=== PATIENT | female | born 1990 | race Caucasian/White ===

== ENCOUNTER 2018-02-08 05:30 | Day surgery (SDC) | payer OTHER ==
[~2018-02-08 05:30] MED LIST: OBSTETRIX EC C1 EACH PO; PROGESTERONE200 MG PO; SYNTHROID200 MCG PO
== END 2018-02-08 13:20 | disposition home or self-care (01) ==
LOC: CIR.AMB 05:30
DX: O34.31 Maternal care for cervical incompetence, first trimester (principal)

== ENCOUNTER 2018-05-12 09:00 | Outpatient (CLI) | payer OTHER | END 2018-05-12 10:18 | disposition home or self-care (01) | LOC: NST 09:00 | DX: O60.02 Preterm labor without delivery, second trimester (principal); O34.32 Maternal care for cervical incompetence, second trimester; Z34.02 Encounter for supervision of normal first pregnancy, second trimester ==

== ENCOUNTER 2018-06-09 08:45 | Outpatient (CLI) | payer OTHER | END 2018-06-09 10:07 | disposition home or self-care (01) | LOC: NST 08:45 | DX: O34.33 Maternal care for cervical incompetence, third trimester (principal); Z34.03 Encounter for supervision of normal first pregnancy, third trimester ==

== ENCOUNTER 2018-06-16 06:43 | Outpatient (CLI) | payer OTHER | END 2018-06-16 07:39 | disposition home or self-care (01) | LOC: NST 06:43 | DX: Z34.03 Encounter for supervision of normal first pregnancy, third trimester (principal) ==

== ENCOUNTER 2018-06-29 06:27 | Outpatient (CLI) | payer OTHER | END 2018-06-29 06:57 | disposition home or self-care (01) | LOC: NST 06:27 | DX: O34.33 Maternal care for cervical incompetence, third trimester (principal); Z34.03 Encounter for supervision of normal first pregnancy, third trimester ==

== ENCOUNTER 2018-07-20 06:16 | Outpatient (CLI) | payer OTHER | END 2018-07-20 07:15 | disposition home or self-care (01) | LOC: NST 06:16 | DX: Z34.83 Encounter for supervision of other normal pregnancy, third trimester (principal) ==

== ENCOUNTER 2018-07-20 10:15 | Inpatient (IN) | payer OTHER ==
[~2018-07-20] VITALS: Ht 175.3 cm; Wt 112.5 kg
[2018-08-08] MEDS ORDERED: ZANTAC150 M3 PO (10:13)
== END 2018-08-10 14:03 | disposition home or self-care (01) | DRG 807 ==
LOC: SURH 08-04 10:15 → OB/GYN 08-08 07:42 → LDR 08-08 07:42 → OB/GYN 08-08 14:34
PROC: 10E0XZZ Delivery of Products of Conception, External Approach (ICD-10-PCS; principal; 2018-08-08)
PROC: 10907ZC Drainage of Amniotic Fluid, Therapeutic from Products of Conception, Via Natural or Artificial Opening (ICD-10-PCS; 2018-08-08)
PROC: 3E033VJ Introduction of Other Hormone into Peripheral Vein, Percutaneous Approach (ICD-10-PCS; 2018-08-08)
PROC: 4A1HXCZ Monitoring of Products of Conception, Cardiac Rate, External Approach (ICD-10-PCS; 2018-08-08)
DX: O80 Encounter for full-term uncomplicated delivery (principal); Z37.0 Single live birth; Z3A.38 38 weeks gestation of pregnancy

== ENCOUNTER 2018-08-08 00:38 | Outpatient (CLI) | payer OTHER ==
[2018-08-08] MEDS ORDERED: ZANTAC150 M3 PO (10:13)
== END 2018-08-08 10:03 | disposition still patient (30) ==
LOC: OBS/DEL 00:38
DX: O26.893 Other specified pregnancy related conditions, third trimester (principal); R10.2 Pelvic and perineal pain; Z34.83 Encounter for supervision of other normal pregnancy, third trimester

== ENCOUNTER 2020-12-03 05:45 | Day surgery (SDC) | payer OTHER ==
[~2020-12-03 05:45] MED LIST changes: +SYNTH PO; +ZANTAC150 M3 PO
== END 2020-12-03 15:50 | disposition home or self-care (01) ==
LOC: CIR.AMB 05:45
PROVIDERS: ATTEND Obstetrics & Gynecology
DX: O34.32 Maternal care for cervical incompetence, second trimester (principal); Z20.822 Contact with and (suspected) exposure to COVID-19; Z3A.14 14 weeks gestation of pregnancy

== ENCOUNTER 2021-03-17 07:32 | Outpatient (CLI) | payer OTHER | END 2021-03-17 08:27 | disposition home or self-care (01) | LOC: NST 07:32 | PROVIDERS: ATTEND Obstetrics & Gynecology | DX: O34.33 Maternal care for cervical incompetence, third trimester (principal) ==

== ENCOUNTER 2021-04-16 08:40 | Outpatient (CLI) | payer OTHER | END 2021-04-16 09:21 | disposition home or self-care (01) | LOC: NST 08:40 | PROVIDERS: ATTEND Obstetrics & Gynecology Maternal & Fetal Medicine | DX: O34.33 Maternal care for cervical incompetence, third trimester (principal) ==

== ENCOUNTER 2021-05-19 20:12 | Inpatient (IN) | payer OTHER ==
[~2021-05-19] VITALS: Ht 175.3 cm; Wt 107.5 kg
[2021-05-19] MEDS ORDERED: PRENATABS RX T1 EACH PO (21:55)
[2021-05-19] MEDS ORDERED: PEPCID AC20 MG PO (21:55)
[2021-05-21] MEDS ORDERED: FOLIC ACID1 MG (10:08)
[2021-05-21] MEDS ORDERED: SYNTHROID112 MCG (10:08)
== END 2021-05-22 10:08 | disposition home or self-care (01) | DRG 807 ==
LOC: LDR 20:12 → SURG-SUITE 20:12 → LDR 21:29 → SURG-SUITE 05-20 09:20
PROVIDERS: ADMIT Obstetrics & Gynecology; ATTEND Obstetrics & Gynecology
PROC: 4A1HXFZ Monitoring of Products of Conception, Cardiac Rhythm, External Approach (ICD-10-PCS; 2021-05-19)
PROC: 10E0XZZ Delivery of Products of Conception, External Approach (ICD-10-PCS; principal; 2021-05-20)
DX: O42.02 Full-term premature rupture of membranes, onset of labor within 24 hours of rupture (principal); Z37.0 Single live birth; Z3A.37 37 weeks gestation of pregnancy; O99.284 Endocrine, nutritional and metabolic diseases complicating childbirth; E03.9 Hypothyroidism, unspecified